=== PATIENT | female | born 1970 | race Caucasian/White ===

== ENCOUNTER 2016-09-28 14:52 | Emergency (ER) | payer BC ==
[~2016-09-28] VITALS: Ht 162.6 cm; Wt 68.0 kg
[2016-09-28 21:22] VITALS: BP 105/74
== END 2016-09-28 19:40 | disposition home or self-care (01) ==
LOC: ER 14:54
DX: R07.89 Other chest pain (principal); R20.8 Other disturbances of skin sensation; Z41.1 Encounter for cosmetic surgery
CPT/HCPCS: 71010; 93005; 99284; A4606; Z7610

== ENCOUNTER 2019-08-13 20:55 | Emergency (ER) | payer BC, MEDICAID ==
[~2019-08-13] VITALS: Ht 162.6 cm; Wt 63.5 kg
[2019-08-13 20:56] VITALS: BP 137/86
--- NOTE | 2019-08-13 20:56 | NUR ---
PT BIB EMS C/O ANXIETY INDUCED CP. "I'VE BEEN DEALING WITH IT FOR ABOUT A YEAR NOW, I'VE BEEN STRESSED OUT". PER EMS THEY NOTED PT HYPERVENTILATING. PT ON MONITOR IN BED 3. WILL CONTINUE TO MONITOR.
--- NOTE | 2019-08-13 21:04 | NUR ---
NOTED PT CRYING, SHAKING WHILE PLACING PT ON THE MONITOR.
--- NOTE | 2019-08-13 21:10 | NUR ---
FAMILY AT BEDSIDE
--- NOTE | 2019-08-13 21:11 | NUR ---
IV ACCESS NOT NEEDED PER MD
--- NOTE | 2019-08-13 21:13 | NUR ---
PHLEB AT BEDSIDE FOR LAB DRAW
[2019-08-13 21:20] LABS: BASOPHILS % (AUTO) 0.3 % (0.0-2.0); EOSINOPHILS % (AUTO) 1.7 % (0.0-6.0); HEMATOCRIT 39 % (33-45); HEMOGLOBIN 12.9 g/dL (11.5-14.8); LYMPHOCYTES # (AUTO) 1.9 /CMM (0.8-4.8); LYMPHOCYTES % (AUTO) 21.5 % (20.0-44.0); MEAN CORPUSCULAR HGB CONC 33 g/dl (31.0-36.0); MEAN CORPUSCULAR VOLUME 87 fL (82-100); MONOCYTES # (AUTO) 0.4 /CMM (0.1-1.30); MONOCYTES % (AUTO) 4.4 % (2.0-12.0); NEUTROPHILS # (AUTO) 6.5 /CMM (1.8-8.9); NEUTROPHILS % (AUTO) 72.1 % (43.0-81.0); PLATELET COUNT (AUTO) 265 /CMM (150-450); RED BLOOD CELL COUNT(AUTO) 4.49 MIL/uL (4.0-5.2)
[2019-08-13] MEDS ORDERED: LORAZEPAM 1 MG TABLET ONE (21:21)
[2019-08-13] MEDS: LORAZEPAM 1 MG TABLET PO ONE (21:28)
[2019-08-13 21:29] LABS: CALCIUM, SERUM 9.1 mg/dL (8.5-10.1); CARBON DIOXIDE 26 mmol/L (21-32); CHLORIDE 104 mmol/L (98-107); CREATININE 0.8 mg/dL (0.6-1.3); GLUCOSE 107 mg/dL (74-106); POTASSIUM 3.9 mmol/L (3.5-5.1); SODIUM SERUM 140 mmol/L (136-145); UREA NITROGEN, BLOOD 9 mg/dL (7-18)
--- NOTE | 2019-08-13 21:53 | NUR ---
IV removed. Catheter intact and site benign. Pressure and 4x4 applied to site. No bleeding noted.Patient discharged to home in stable condition. Written and verbal after care instructions given. Patient verbalizes understanding of instruction. PT AMBULATORY WITH STEADY GAIT ACCOMPANIED BY FAMILY.
== END 2019-08-13 21:53 | disposition home or self-care (01) ==
LOC: ER 21:00
DX: F41.9 Anxiety disorder, unspecified (principal); R06.4 Hyperventilation; Z41.1 Encounter for cosmetic surgery
CPT/HCPCS: 36415; 80048-TC; 84484-TC; 85025-TC

== ENCOUNTER 2020-03-17 16:45 | Emergency (ER) | payer MEDICAID, OTHER ==
[~2020-03-17] VITALS: Ht 162.6 cm; Wt 63.5 kg
--- NOTE | 2020-03-17 16:59 | NUR ---
PT AMBULATORY TO ER BED 06. PT IS C/O SEVERE R SIDED HEADACHE SINCE YESTERDAY. PT STATES BEEN TAKING IBUPROFEN W/ NO RELIEF. PT DENIES CHEST PAIN/SOB. PLACED ON MONITOR. AWAITING MD CORDON.
--- NOTE | 2020-03-17 17:09 | NUR ---
DR CAMPBELL AT BEDSIDE FOR EVAL.
[2020-03-17] MEDS ORDERED: diphenhydrAMINE HCL 50 MG/ML VIAL ONE (17:23)
[2020-03-17] MEDS ORDERED: DEXAMETHASONE SOD PHOSPHATE 10 MG/ML VIAL ONE (17:23)
[2020-03-17] MEDS ORDERED: PROCHLORPERAZINE EDISYLATE 10 MG/2 ML VIAL ONE (17:24)
[2020-03-17] MEDS ORDERED: KETOROLAC TROMETHAMINE 15 MG/ML VIAL ONE (17:24)
[2020-03-17] MEDS: IV NS 0.9% 1,000 ML BAG IV ONE (17:26)
[2020-03-17] MEDS: DEXAMETHASONE SOD PHOSPHATE 10 MG/ML VIAL IV ONE (17:27)
[2020-03-17] MEDS: diphenhydrAMINE HCL 50 MG/ML VIAL IV ONE (17:28)
[2020-03-17] MEDS: KETOROLAC TROMETHAMINE INJ 30 MG/ML VIAL IV ONE (17:30)
[2020-03-17] MEDS: PROCHLORPERAZINE EDISYLATE 10 MG/2 ML VIAL IVP ONE (17:32)
[2020-03-17 17:37] LABS: BASOPHILS # (AUTO) 0.1 /CMM (0.0-0.2); BASOPHILS % (AUTO) 0.7 % (0.0-2.0); EOSINOPHILS % (AUTO) 2.4 % (0.0-6.0); HEMATOCRIT 41 % (33-45); HEMOGLOBIN 13.8 g/dL (11.5-14.8); LYMPHOCYTES # (AUTO) 2.6 /CMM (0.8-4.8); LYMPHOCYTES % (AUTO) 29.2 % (20.0-44.0); MEAN CORPUSCULAR HGB CONC 33 g/dl (31.0-36.0); MEAN CORPUSCULAR VOLUME 86 fL (82-100); MONOCYTES # (AUTO) 0.4 /CMM (0.1-1.30); NEUTROPHILS # (AUTO) 5.6 /CMM (1.8-8.9); NEUTROPHILS % (AUTO) 62.7 % (43.0-81.0); PLATELET COUNT (AUTO) 261 /CMM (150-450); RED BLOOD CELL COUNT(AUTO) 4.78 MIL/uL (4.0-5.2); WHITE BLOOD COUNT (AUTO) 8.9 K/uL (4.3-11.0)
[2020-03-17 17:40] LABS: APPEARANCE,URINE Clear (CLEAR); BILIRUBIN,URINE Negative (NEGATIVE); BLOOD, URINE Moderate Ery/uL (NEGATIVE); COLOR,URINE Yellow (YELLOW); KETONES,URINE Negative (NEGATIVE); LEUKOCYTE ESTERASE ,URINE Negative (NEGATIVE); NITRITE, URINE Negative (NEGATIVE); PROTEIN,URINE Negative (NEGATIVE); UGLUCOSE Negative (NEGATIVE); UROBILINOGEN,URINE 0.2 EU/dL (0.2)
--- NOTE | 2020-03-17 17:40 | NUR ---
RADIOLOGY AT BEDSIDE FOR CHEST XRAY.
[2020-03-17 17:48] LABS: CREATININE 0.9 mg/dL (0.6-1.3)
[2020-03-17 17:54] LABS: BACTERIA,URINE Few /HPF (None Seen); SQUAMOUS EPITHELIAL CELL,UR Few /HPF (None Seen); WBC,URINE NONE SEEN /HPF (0-3)
[2020-03-17 17:54] LABS: BILIRUBIN,DIRECT 0.1 mg/dL (0.0-0.2); BILIRUBIN,TOTAL 0.2 mg/dL (0.2-1.0); TOTAL PROTEIN, SERUM 7.1 g/dL (6.4-8.2)
--- NOTE | 2020-03-17 19:25 | NUR ---
REPORT TO MICHELE VIDES FOR DEEP.
[2020-03-17] MEDS ORDERED: IV NS 0.9% 250 ML IV ONE (19:39)
[2020-03-17] MEDS ORDERED: IOHEXOL-350 100 ML VIAL IV ONE (19:39)
[2020-03-17] MEDS ORDERED: CT SWABBABLE VALVE TRANS SET 1 EA INFUS.SET MC ONE (19:39)
[2020-03-17] MEDS: VALPROATE 500 MG in IV NS 0.9% 100 ML IV STA (20:09)
--- NOTE | 2020-03-17 21:10 | NUR ---
Patient discharged to home in stable condition. Written and verbal after care instructions given. Patient verbalizes understanding of instruction.IV removed. Catheter intact and site benign. Pressure and 4x4 applied to site. No bleeding noted.
[2020-03-17 21:11] VITALS: BP 124/87
== END 2020-03-17 21:11 | disposition home or self-care (01) ==
LOC: ER 16:48
DX: R51 Headache (principal); F41.9 Anxiety disorder, unspecified; Z41.1 Encounter for cosmetic surgery
CPT/HCPCS: 36415; 70450; 70496; 71045; 80048; 80076; 81001; 85025; 85730; 96365; 96375; 99285; J0780; J1100; J1200; J1885; J3490; J7030 ×2; J7050; Q9967; 81000-TC